=== PATIENT | female | born 1970 | race Caucasian/White ===

== ENCOUNTER 2019-01-07 16:33 | Emergency (ER) | payer SELFPAY ==
[~2019-01-07] VITALS: Ht 162.6 cm; Wt 95.3 kg
[2019-01-07 16:37] VITALS: BP 135/85
--- NOTE | 2019-01-07 16:42 | NUR ---
PT VSS, NOT IN DISTRESS; AMB TO LOBBY ALONE
--- NOTE | 2019-01-07 17:35 | NUR ---
PATIENT AMBULATED TO ER BED 2.
--- NOTE | 2019-01-07 17:43 | NUR ---
PATIENT PRESENTS TO ED WITH C/O PRODUCTIVE COUGH, SUBJECTIVE FEVER, CHILLS. REPORTS SYMPTOMS X 6 DAYS WITH NO IMPROVEMENT. AAOX4 WITH EVEN AND STEADY GAIT; WHEEZING LUNGS LEFT SIDE; HR EVEN AND REGULAR; PT DENIES ANY FEVER, CP, SOB, AT THIS TIME; DENIES N/V/D; SKIN IS PINK/WARM/DRY;DENIES PAIN; VSS; PATIENT POSITIONED FOR COMFORT; HOB ELEVATED; BEDRAILS UP X2; BED DOWN. ER MD MADE AWARE OF PT STATUS.
--- NOTE | 2019-01-07 18:33 | NUR ---
Patient being evaluated by physician at bedside.
[2019-01-07] MEDS ORDERED: ALBUTEROL 0.083% 2.5 MG/3 ML NEBU INH ONE (18:35)
[2019-01-07] MEDS ORDERED: predniSONE 20 MG TAB PO ONE (18:35)
--- NOTE | 2019-01-07 18:47 | NUR ---
PT REFUSED THE BREATHING TREATMENT AT THIS TIME, ED MD MADE AWARE.
--- NOTE | 2019-01-07 18:50 | NUR ---
Patient refused HHN Albuterol. Nurse made aware. Addendum: 01/07/19 at 1850 by JAE No SOB or distress noted.
--- NOTE | 2019-01-07 19:12 | NUR ---
REPORT GIVEN TO CONSULTING SME NURSE FOR CONTINUE OF CARE.
[2019-01-07 19:47] VITALS: BP 121/78
--- NOTE | 2019-01-07 19:47 | NUR ---
Patient discharged with v/s stable. Written and verbal after care instructions given and explained. Patient alert, oriented and verbalized understanding of instructions. Ambulatory with steady gait. All questions addressed prior to discharge. ID band removed. Patient advised to follow up with PMD. Rx of XOPENEX HFA, PREDNISONE 20 MG, PROMETHAZINE DM given. Patient educated on indication of medication including possible reaction and side effects. Opportunity to ask questions provided and answered.
== END 2019-01-07 19:47 | disposition home or self-care (01) ==
LOC: MED 16:33
DX: J45.909 Unspecified asthma, uncomplicated (principal); B34.9 Viral infection, unspecified
CPT/HCPCS: 71046; 99283; J7512; J7613